=== PATIENT | male | born 2000 | race Two or more races ===

== ENCOUNTER 2022-09-13 13:15 | Emergency (ER) | payer BC, OTHER ==
[~2022-09-13] VITALS: Ht 180.3 cm; Wt 86.0 kg
[2022-09-13] MEDS ORDERED: IOHEXOL 300 MG/ML 100ML BOTTLE IJ ONE (13:48)
[2022-09-13] MEDS ORDERED: fentaNYL CITRATE 100 MCG/2 ML VL IV ONE (14:00)
[2022-09-13 14:02] LABS: Urine Bacteria NONE SEEN /hpf (None Seen); Urine Blood Negative /uL (Negative); Urine Specific Gravity 1.027 (1.001-1.035); Urine WBC 1 /hpf (0 - 3)
[2022-09-13 14:39] LABS: Basophils # (auto) 0 10 ^3/uL (0-0.2); Basophils % (auto) 0.4 % (0.0-2.0); Eosinophils # (auto) 0.1 10 ^3/uL (0-0.8); Eosinophils % (auto) 0.5 % (0.0-7.0); Hematocrit 39.6 % (41.0-53.0); Hemoglobin 13.2 g/dL (13.5-17.5); Lymphocytes % (auto) 9.2 % (10.0-50.0); Mean Corpuscular Hemoglobin 27.1 pg (28.0-32.0); Mean Corpuscular Hgb Conc. 33.4 g/dL (32.0-36.0); Mean Corpuscular Volume 80.9 fL (80.0-100.0); Monocytes # (auto) 0.6 10 ^3/uL (0-1.3); Monocytes % (auto) 5.4 % (0.0-12.0); Neutrophils # (auto) 8.7 10 ^3/uL (1.6-8.6); Neutrophils % (auto) 84.5 % (37.0-80.0); Red Blood Cells 4.89 10^6/uL (4.5-5.90); Red Cell Distribution Width 14.7 % (11.8-14.3); White Blood Cell 10.3 10^3/uL (4.4-10.8)
[2022-09-13 14:52] LABS: INR 1.03 (0.9-1.15); Partial Thromboplastin Time 23.5 sec (24.6-33.4)
[2022-09-13 15:02] LABS: BUN/Creatinine Ratio 25.3 (10.0-20.0); Calcium 9.1 mg/dL (8.5-10.1); Potassium 3.6 mmol/L (3.5-5.1)
[2022-09-13 15:05] LABS: Bilirubin, Total 0.3 mg/dL (0.2-1.0); Total Protein 6.9 g/dL (6.4-8.2)
[2022-09-13] MEDS ORDERED: HYDROmorphone HCL 2 MG/ML VL/or syr IV ONE ×2 (15:15→18:15)
[2022-09-13] MEDS ORDERED: ONDANSETRON HCL 4 MG/2 ML VIAL IV ONE ×2 (15:15→18:15)
[2022-09-13] MEDS ORDERED: HYDR-4798 PO (21:08)
[2022-09-13] MEDS ORDERED: HYDROcodone-ACET 10/325MG TAB PO ONE (21:15)
[2022-09-13 22:00] VITALS: BP 130/68
== END 2022-09-13 22:54 | disposition home or self-care (01) ==
LOC: ER 13:15
DX: S12.9XXA Fracture of neck, unspecified, initial encounter (principal); Z98.890 Other specified postprocedural states; V89.2XXA Person injured in unspecified motor-vehicle accident, traffic, initial encounter; Y93.89 Activity, other specified; Y92.89 Other specified places as the place of occurrence of the external cause; Y99.8 Other external cause status
CPT/HCPCS: 36415; 70450; 71045; 71260; 72125; 72192; 74177; 80053; 81001; 85025; 85610; 85730; 86850; 86900; 86901; 96374; 96375; 96376; 99285; J1170; J2405; J3010; Q9967